=== PATIENT | female | born 1990 | race Caucasian/White ===

== ENCOUNTER 2022-10-29 08:02 | Emergency (ER) | payer BC, SELFPAY ==
[2022-10-29 08:08] VITALS: BP 117/73; PULSE 78; RESP 18; TEMP 36.4; O2SAT 98
--- NOTE | 2022-10-29 08:10 | ED.URI ---
HPI - URI/Sore Throat General Chief Complaint: Upper Respiratory Infection Stated Complaint: cough Source: patient and RN notes reviewed History of Present Illness HPI Narrative: 31-year-old female presents to urgent care with complaints a dry cough the last week. Patient states her cough is much worse at nighttime. Patient states she was up all night last night coughing. Patient denies any chest pain shortness breath fevers, chills, congestion sore throat, ear pain. Denies any vomiting or diarrhea. Patient has been using Mucinex and cough drops with minimal relief. Related Data Allergies Allergy/AdvReac Type Severity Reaction Status Date / Time No Known Allergies Allergy Verified 10/29/22 08:18 Review of Systems Review of Systems: Pertinent positives and pertinent negatives per HPI. PMFSH Comments At the time of my signature, I reviewed and agree with the nursing past medical, surgical, social, and family history. There is no relevant family history pertinent to the patient complaint. Exam Narrative: GENERAL: This is a well-nourished, well-developed patient, in no apparent distress. HEAD: normocephalic, atraumatic. EYES: Sclera clear/white. Vision is grossly intact. EARS: External ears normal, auditory canals clear and without drainage. Hearing grossly intact. NOSE: External nose normal with no obvious nasal discharge, nares without redness, no rhinorrhea. THROAT: Mucous membranes moist, posterior pharynx clear. NECK: Neck supple, non-tender without lymphadenopathy, masses or thyromegaly. CARDIOVASCULAR: Regular rate and rhythm without murmurs, gallops, or rubs. RESPIRATORY: Clear to auscultation. Breath sounds equal bilaterally. No wheezes, rales, or rhonchi. SKIN: warm, intact with no suspicious lesions or rash, good texture and turgor. NEURO: awake, alert, and oriented to person, place and time. There were no obvious focal neurologic abnormalities. Course Course Level of Care: Express Care Visit Vital Signs Vital signs: Reviewed MDM - URI/Sore Throat MDM Narrative Medical decision making narrative: Take steroids as directed. May use the inhaler every 4-6 hours as needed for coughing. Increase fluids at home. Avoid any and all smoke. May use a humidifier in the bedroom. Increase your Vitamin C. Follow-up with personal physician in 2-5 days. Differential Diagnosis Differential diagnosis: Likely upper respiratory infection, viral infection and bronchitis Critical Care Time Critical Care Time Critical Care Time: No Discharge Plan Discharge Clinical Impression: Bronchitis Patient Disposition: Home, Self-Care Condition: Stable Instructions: Acute Bronchitis (ED) Additional Instructions: Take steroids as directed. May use the inhaler every 4-6 hours as needed for coughing. Increase fluids at home. Avoid any and all smoke. May use a humidifier in the bedroom. Increase your Vitamin C. Follow-up with personal physician in 2-5 days. Prescriptions: New levalbuterol tartrate [Xopenex HFA] 45 mcg/actuation HFA aerosol inhaler 2 inh inhalation Q6H PRN (Reason: shortness of breath or wheezing) Qty: 15 0RF prednisone 20 mg tablet 40 mg PO DAILY 5 Days Qty: 10 0RF Follow-up/Referrals: PHYSICIAN NOT ON STAFF,NONSTAFF [Primary Care Provider] - Time of Disposition: 08:24
[2022-10-29] MEDS: predniSONE 20 MG TABLET 60 MG PO (08:29)
== END 2022-10-29 08:33 | disposition home or self-care (01) ==
PROVIDERS: Emergency Provider Nurse Practitioner Family
DX: J40 Bronchitis, not specified as acute or chronic (principal); J45.909 Unspecified asthma, uncomplicated
CPT/HCPCS: 99213; G0463; J7512

== ENCOUNTER 2022-11-14 10:12 | Emergency (ER) | payer BC, SELFPAY ==
--- NOTE | ~2022-11-14 | XR_ITS ---
EXAMINATION: [id number] DATE: 11/14/2022 11:43 INDICATION: Cough. Right rib pain. TECHNIQUE: A frontal view of the chest and 2 views on 3 radiographs of the right ribs were obtained. COMPARISON: None. FINDINGS: There is no pneumonia, pleural effusion, pneumothorax. The heart size is normal. IMPRESSION: 1. No rib fracture. Reviewed, dictated and finalized at location A. IMPRESSION: 1. No rib fracture.
[2022-11-14 10:27] VITALS: BP 103/72; PULSE 65; RESP 16; TEMP 36.9; O2SAT 100
--- NOTE | 2022-11-14 11:24 | ED.GENADULT ---
HPI - General Adult General Chief complaint: Unspecified Stated complaint: right side rib pain Time Seen by Provider: 11/14/22 11:00 Source: patient, RN notes reviewed and old records reviewed Mode of arrival: ambulatory Limitations: no limitations History of Present Illness HPI narrative: 32 year old female who presents to [facility] with complaints of having cough for 2 weeks and was trcently treated in clinic for Bronchitis. Patient states that 5 days ago she coughed and then stetched her arm over her head and felt a pop in her rib area. Patient reports that she continues to have some tenderness to right lateral chest area along rib cage and is concerned she may of broken rib. Patient states that she does have discomfort when she coughs or takes a deep breath to that area. Patient denies any shortness of breath or any fevers has taken some Ibuprofen for her discomfort. MD complaint: right side rib pain Onset (ago): day(s) (5) Location: chest (along right ribs) Severity scale (1-10): 2 Pain Consistency: intermittent Treatments prior to arrival: NSAID Related Data Allergies Allergy/AdvReac Type Severity Reaction Status Date / Time No Known Allergies Allergy Verified 10/29/22 08:18 Review of Systems Review of Systems: CONSTITUTIONAL: Denies fever, chills, or sweats. EYES: Denies visual changes, redness, or discharge. ENT: Denies rhinorrhea, congestion, sore throat, or otalgia. CARDIOVASCULAR: Denies chest pain, palpitations, or edema. RESPIRATORY: Reports some cough denies dyspnea, reports right rib area pain. GASTROINTESTINAL: Denies abdominal pain, nausea, vomiting, or diarrhea. GENITOURINARY: Denies dysuria or hematuria. SKIN: Denies rash or itching. MUSCULOSKELETAL: Denies back pain, joint pain, or myalgia. NEUROLOGIC: Denies headache, numbness, or weakness. PSYCHIATRIC: Denies anxiety or depression. All systems reviewed & are unremarkable except as noted in HPI and below PMFSH Past Medical History Medical History (Updated 11/15/22 @ 11:50 by Leah Razo NP) Asthma Ulcerative colitis Surgical History Surgical History (Updated 11/15/22 @ 11:56 by Leah Razo NP) History of endometrial ablation 06/2022 Social History Social History (Updated 11/15/22 @ 11:57 by Leah Razo NP) Smoking status: Never smoker Alcohol intake: current Alcohol use details: social Substance use type: does not use Living arrangements: with family Gender identity (if verbalized by the patient): Female Comments At time of signature, agree with nursing past medical, surgical, social and family history. There is no relevant family history pertinent to the presenting complaint Exam Narrative: GENERAL: Well-appearing, well-nourished, and in no acute distress. HEAD: Normocephalic, atraumatic. EYES: PERRLA and EOMI. ENT: Nares clear, no rhinorrhea or epistaxis. Mucous membranes moist.TM's normal NECK: Supple.no lymphadenopathy CHEST: Clear to auscultation. No respiratory distress.pain along right rib area increases with deep breathing HEART: Regular rate and rhythm. No murmur heard. Normal peripheral pulses. ABDOMEN: Soft, nontender, nondistended, normal active bowel sounds. EXTREMITIES: Normal range of motion. No edema. SKIN: Warm, dry, no rash. NEURO: No focal deficits. Alert and oriented x3. Course Course Emergency Course: Patient is aware of diagnosis, understands and agrees to treatment plan.? Anticipatory guidance given.? Patient agrees to follow-up as directed and is aware of reasons to seek care at the emergency department. Portions of this record may have been created with voice recognition software Level of Care: Express Care Visit Vital Signs Vital signs: Vital Signs Temperature 36.9 C 11/14/22 10:27 Pulse Rate 65 11/14/22 10:27 Respiratory Rate 16 11/14/22 10:27 Blood Pressure 103/72 11/14/22 10:27 Pulse Oximetry 100 11/14/22 10:27 Temperature 36.9
== END 2022-11-14 12:26 | disposition home or self-care (01) ==
PROVIDERS: Emergency Provider Registered Nurse
DX: M94.0 Chondrocostal junction syndrome [Tietze] (principal); J45.909 Unspecified asthma, uncomplicated
CPT/HCPCS: 71101; 99213; G0463

== ENCOUNTER 2023-02-15 10:07 | Emergency (ER) | payer BC, SELFPAY ==
--- NOTE | ~2023-02-15 | XR_ITS ---
EXAMINATION: XR finger 1st LT min 2V DATE: 02/15/2023 10:26 INDICATION: One week of nontraumatic left thumb pain and swelling TECHNIQUE: Dorsal palmar, lateral and 2 oblique views of the left first digit were obtained COMPARISON: None FINDINGS: Bone alignment is normal. No fracture. Joint spaces are normal. No cortical erosions or periosteal re action. Soft tissues are unremarkable. IMPRESSION: 1. Negative left thumb radiographs. Reviewed, dictated and finalized at location A. DOCTORAL RESEARCHER
[2023-02-15 10:12] VITALS: BP 104/66; PULSE 77; RESP 16; TEMP 36.8; O2SAT 97
--- NOTE | 2023-02-15 10:17 | ED.UPPEXIN ---
HPI - Extremity Injury (Upper) General Chief Complaint: Extremity Injury, Upper Stated Complaint: left thumb injury Source: patient and RN notes reviewed Mode of arrival: ambulatory Limitations: no limitations History of Present Illness HPI narrative: Patient is a 32-year-old female who presents to the [facility] with complaints of left thumb pain. Patient states that she was unable to pop her thumb and when she initially did, she had sudden onset pain to the MIP joint of the left thumb. She states that she initially had bruising and swelling that has resolved. However, she has continued to experience pain in the thumb. She states that she feels is afraid thumb gets cough when moving it. However, she has full range motion. She is neurovascularly intact distally. Related Data Allergies Allergy/AdvReac Type Severity Reaction Status Date / Time No Known Allergies Allergy Verified 10/29/22 08:18 Review of Systems Review of Systems: CONSTITUTIONAL: Denies fever, chills, or sweats. EYES: Denies visual changes, redness, or discharge. ENT: Denies otalgia and sore throat CARDIOVASCULAR: Denies chest pain, palpitations, or edema. RESPIRATORY: Denies cough or dyspnea. GASTROINTESTINAL: Denies abdominal pain, nausea, vomiting, or diarrhea. GENITOURINARY: Denies dysuria or hematuria. SKIN: Denies rash or itching. MUSCULOSKELETAL: Denies back pain or myalgia. Reports left thumb pain. NEUROLOGIC: Denies headache, numbness, or weakness. Pertinent positives per HPI. [facility] Past Medical History Medical History Asthma Ulcerative colitis Surgical History Surgical History History of endometrial ablation 06/2022 Social History Social History Smoking status: Never smoker Alcohol intake: current Alcohol use details: social Substance use type: does not use Living arrangements: with family Gender identity (if verbalized by the patient): Female Comments At the time of my signature, I reviewed and agree with the nursing past medical, surgical, social, and family history. There is no relevant family history pertinent to the patient complaint. Exam Narrative: GENERAL: This is a well-nourished, well-developed patient, in no apparent distress. HEAD: normocephalic, atraumatic. EYES: PERRL. Sclera clear/white. Vision is grossly intact. EARS: External ears normal, auditory canals clear and without drainage, TMs normal without perforation. Hearing grossly intact. NOSE: External nose normal with no obvious nasal discharge, nares without redness, no rhinorrhea. THROAT: Mucous membranes moist, posterior pharynx clear. NECK: Neck supple, non-tender without lymphadenopathy, masses or thyromegaly. CARDIOVASCULAR: Regular rate and rhythm without murmurs, gallops, or rubs. RESPIRATORY: Clear to auscultation. Breath sounds equal bilaterally. No wheezes, rales, or rhonchi. GASTROINTESTINAL: Abdomen soft, non-tender, nondistended. Bowel sounds are active. No hepato-splenomegaly, or palpable masses. No guarding. SKIN: warm, intact with no suspicious lesions or rash, good texture and turgor. NEURO: awake, alert, and oriented to person, place and time. There were no obvious focal neurologic abnormalities. EXTREMITIES: Left thumb tenderness over the MIP joint. Full range of motion present. She is neurovascularly intact distal from the area. BACK: Nontender without deformity or crepitance. No flank tenderness. Course Course Level of Care: Express Care Visit Vital Signs Vital signs: Vital Signs Temperature 98.3 F 02/15/23 10:12 Pulse Rate 77 02/15/23 10:12 Respiratory Rate 16 02/15/23 10:12 Blood Pressure 104/66 02/15/23 10:12 Pulse Oximetry 97 02/15/23 10:12 Oxygen Delivery Room Air 02/15/23 10:12 Temperature 98.3 F 02/15/23 10:12
== END 2023-02-15 10:44 | disposition home or self-care (01) ==
PROVIDERS: Emergency Provider Nurse Practitioner
DX: M65.312 Trigger thumb, left thumb (principal); J45.909 Unspecified asthma, uncomplicated
CPT/HCPCS: 73140; 99213; G0463

== ENCOUNTER 2023-06-05 08:37 | Outpatient (CLI) | payer BC, SELFPAY ==
[2023-06-05 19:10] LABS: Hemoglobin 13.3 g/dL (12.0-15.0); Mean Corpuscular HGB Conc 33.3 g/dl (32-36); Mean Corpuscular Hemoglobin 31.3 pg (26-34); Mean Corpuscular Volume 94.1 fl (80-100); Mean Platelet Volume 10.1 fl (7.4-10.4); Platelet Count Result 255 k/mm3 (150-375); Red Blood Count 4.25 M/mm3 (4.2-5.4); Red Cell Distribution Width 12.1 % (11.5-14.5); White Blood Count 4.1 K/mm3 (4.5-10.0)
[2023-06-05 19:17] LABS: Alanine Aminotransferase 15 U/L (6-35); Albumin Level 4.5 g/dL (3.5-5.1); Alkaline Phosphatase 41 U/L (38-126); Anion Gap 6 mmol/L (4-12); Aspartate Amino Transferase 45 U/L (14-36); Bilirubin,Total 0.8 mg/dL (0.2-1.3); Blood Urea Nitrogen 11 mg/dL (7-17); Calcium 9.4 mg/dL (8.4-10.2); Carbon Dioxide 29 mmol/L (22-30); Chloride 103 mmol/L (98-107); Cholesterol 158 mg/dL (0-200); Estimated Glomerular Filt Rate > 60; Glucose 91 mg/dL (65-110); HDL Direct 45 mg/dL; Potassium 4.3 mmol/L (3.4-5.0); Sodium 138 mmol/L (137-145); Triglycerides 55 mg/dL (<150)
[2023-06-05 19:28] LABS: LDL Cholesterol Direct 98 mg/dL
[2023-06-05 19:59] LABS: Erythrocyte Sedimentation Rate 12 mm/hr (0-20)
== END 2023-06-05 08:38 | disposition home or self-care (01) ==
LOC: ANHBWCLAB 08:39
PROVIDERS: PCP Nurse Practitioner Adult Health; Visit Provider Nurse Practitioner Adult Health
DX: Z13.9 Encounter for screening, unspecified (principal); K51.90 Ulcerative colitis, unspecified, without complications
CPT/HCPCS: 36415; 80053; 80061; 84443; 85027; 85652

== ENCOUNTER 2023-07-30 00:59 | Day surgery (SDC) | payer BC, SELFPAY ==
[2023-07-25 08:57] VITALS: BMI 25.9
[2023-07-30 11:20] VITALS: BP 105/79; PULSE 79; RESP 18; TEMP 36.4; O2SAT 100
[2023-07-30] MEDS: LACTATED RINGERS 1,000 ML 150 ML IV CONT (11:28)
--- NOTE | 2023-07-30 12:23 | WPDANESEPPF ---
Anes - Initial Pre Proc Eval Procedure: Operation Date: 07/30/23 13:00 Proposed Procedures p Esophagogastroduodenoscopy & Colonoscopy - Sam Connelly MD Date/Time: 07/30/23 12:23 Surgeon: Sam Connelly MD Pre Op Diagnosis: N&V, Early satiety,Abd. distension, diarrhea Patient Data Age: 32 Gender: F Height: 1.7 m Weight: 72.4 kg Last Vital Signs Temp 97.5 F L 07/30/23 11:20 Pulse 79 07/30/23 11:20 Resp 18 07/30/23 11:20 BP 105/79 07/30/23 11:20 Pulse Ox 100 07/30/23 11:20 O2 Del Method Room Air 07/30/23 11:20 Allergies Allergy/AdvReac Type Severity Reaction Status Date / Time No Known Allergies Allergy Verified 07/30/23 11:18 Home Medications Medication Instructions Recorded Confirmed Type fluvoxamine 50 mg tablet 50 mg PO QHS #90 tabs 07/17/23 07/25/23 Rx dicyclomine 10 mg capsule 10 mg PO QID PRN abdominal pain 07/20/23 07/25/23 Rx #120 caps ondansetron 4 mg disintegrating 4 mg PO Q8H PRN nausea and 07/20/23 07/25/23 Rx tablet vomiting #30 tabs rifaximin 550 mg tablet (Xifaxan) 550 mg PO TID 14 days #42 tabs 07/20/23 07/25/23 Rx Patient hx anesthesia problems: none Family hx anesthesia problems: none Results Review: All pre-operative results and documents have been reviewed as part of the pre-operative evaluation. [facility] Past Medical History Medical History Anxiety Asthma Migraine Ulcerative colitis Surgical History Surgical History History of endometrial ablation 06/2022 Family History Family History Father Diabetes mellitus Heart disease Cancer Mother Depression Disorder of thyroid Grandparent Diabetes mellitus Social History Social History Smoking status: Never smoker Alcohol intake: current Alcohol use details: Socially Substance use type: does not use Lack of Transportation: No Lack of Food: Never True Current Housing: I Have Housing Concerned About Future Housing: No Difficulty Paying Gas/Electric Bills: No Difficulty Paying for Meds: No Currently Unemployed: No Education: Trade/Vocational Certificate Difficulty w/ Childcare or Family Care: No Living arrangements: with family Additional living arrangements comments: with sp Occupation/Education: occupation 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 Gender identity (if verbalized by the patient): Female Agree to blood products: Yes Anes - Eval Final PreProcedure Day of Procedure 07/30/23 12:23 Patient weight: normal Heart: regular rate and rhythm Lungs: clear to auscultation Airway: Mallampati scale class II Neurological: alert and oriented Last oral intake: >/= 8 hours ASA classification: II Emergent: no Anesthetic plan: proceed Anesthesia type and monitoring: general GIVS and standard monitoring Results Review: All pre-operative results and documents have been reviewed as part of the pre-operative evaluation. Informed Consent: The patient's anesthetic plan and its attendant risks and benefits were discussed with the patient/family/POA. Questions were solicited and answers provided to the satisfaction of the patient/family/POA.
--- NOTE | 2023-07-30 13:14 | WPDHPUPDATE1 ---
History and Physical Update Update Date/Time: 07/30/23 13:14 History and Physical has been reviewed, including an updated exam of the patient. There are NO changes in the patient's condition. Risks, benefits, and alternatives have been discussed and questions answered. Patient agrees to proceed with procedure.
--- NOTE | 2023-07-30 13:22 | SUR.OPER ---
EGD start 1318 end 1320, Colonoscopy start 1325
[2023-07-30 13:36] VITALS: BP 91/56; PULSE 61; RESP 22; O2SAT 100
[2023-07-30 13:46] VITALS: BP 96/61; PULSE 60; RESP 14; O2SAT 100
[2023-07-30 13:56] VITALS: BP 107/72; PULSE 60; RESP 12; O2SAT 100
== END 2023-07-30 14:01 | disposition home or self-care (01) ==
PROVIDERS: PCP Nurse Practitioner Adult Health; Visit Provider Internal Medicine Gastroenterology
PROC: 0DJ08ZZ Inspection of Upper Intestinal Tract, Via Natural or Artificial Opening Endoscopic (ICD-10-PCS; CPT 43235; principal; 2023-07-30 13:00)
DX: K29.50 Unspecified chronic gastritis without bleeding (principal); K29.80 Duodenitis without bleeding; K64.8 Other hemorrhoids; F41.9 Anxiety disorder, unspecified; J45.909 Unspecified asthma, uncomplicated; Z98.890 Other specified postprocedural states; Z80.9 Family history of malignant neoplasm, unspecified; Z82.49 Family history of ischemic heart disease and other diseases of the circulatory system
CPT/HCPCS: 43239; 45380; 88305; J2001; J2704; J7120

== ENCOUNTER 2023-12-12 12:46 | Emergency (ER) | payer BC, SELFPAY ==
[2023-12-12 12:52] VITALS: BP 119/74; PULSE 71; RESP 16; TEMP 37.5; O2SAT 100
--- NOTE | 2023-12-12 13:17 | ED.LOWEXIN ---
HPI - Extremity Injury (Lower) General Chief Complaint: Extremity Injury, Lower Stated Complaint: top of left foot pain/swelling Time Seen by Provider: 12/12/23 13:17 Source: patient Mode of arrival: ambulatory Limitations: no limitations History of Present Illness HPI Narrative: 33-year-old female presents with complaint of pain to dorsal aspect left foot. Patient states this morning around 8:00 a.m. she ran her foot into a cabinet. Patient concern for fracture. Ambulatory with limp. All systems reviewed and negative except as noted above. Related Data Allergies Allergy/AdvReac Type Severity Reaction Status Date / Time No Known Allergies Allergy Verified 12/12/23 13:32 Review of Systems Review of Systems: CONSTITUTIONAL: Denies fever, chills, or sweats. EYES: Denies visual changes, redness, or discharge. ENT: Denies rhinorrhea, congestion, sore throat, or otalgia. CARDIOVASCULAR: Denies chest pain, palpitations, or edema. RESPIRATORY: Denies cough or dyspnea. GASTROINTESTINAL: Denies abdominal pain, nausea, vomiting, or diarrhea. GENITOURINARY: Denies dysuria or hematuria. SKIN: Denies rash or itching. MUSCULOSKELETAL: Pain to dorsal aspect left foot with swelling. NEUROLOGIC: Denies headache, numbness, or weakness. PSYCHIATRIC: Denies anxiety or depression. All other systems reviewed are negative, except as documented in HPI. [facility] Past Medical History Medical History (Updated 12/12/23 @ 13:58 by Clau Rosa NP) Anxiety Asthma Migraine Surgical History Surgical History History of endometrial ablation 06/2022 Family History Family History Father Diabetes mellitus Heart disease Cancer Mother Depression Disorder of thyroid Grandparent Diabetes mellitus Social History Social History Smoking status: Never smoker Alcohol intake: current Alcohol use details: Socially Substance use type: does not use Lack of Transportation: No Lack of Food: Never True Current Housing: I Have Housing Concerned About Future Housing: No Difficulty Paying Gas/Electric Bills: No Difficulty Paying for Meds: No Currently Unemployed: No Education: Trade/Vocational Certificate Difficulty w/ Childcare or Family Care: No Living arrangements: with family Additional living arrangements comments: with sp Occupation/Education: occupation 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 Gender identity (if verbalized by the patient): Female Agree to blood products: Yes Comments At time of signature, agree with nursing past medical, surgical, social and family history. There is no relevant family history pertinent to the presenting complaint. Exam Narrative: GENERAL: This is a well-nourished, well-developed patient, in no apparent distress. HEAD: normocephalic, atraumatic. EYES: PERRL. Sclera clear/white. Vision is grossly intact. EARS: External ears normal NOSE: External nose normal NECK: Neck supple, non-tender without lymphadenopathy, masses or thyromegaly. CARDIOVASCULAR: Regular rate and rhythm without murmurs, gallops, or rubs. RESPIRATORY: Clear to auscultation. Breath sounds equal bilaterally. No wheezes, rales, or rhonchi. SKIN: warm, Dry, intact with no suspicious lesions or rash, good texture and turgor. NEURO: awake, alert, and oriented to person, place and time. There were no obvious focal neurologic abnormalities. EXTREMITIES:pain and swelling to dorsal aspect L foot with small abrasion Course Course Level of Care: Express Care Visit Vital Signs Vital signs: Vital Signs Temperature 37.5 C 12/12/23 12:52 Pulse Rate 71 12/12/23 12:52 Respiratory Rate 16 12/12/23 12:52 Blood Pressure 119/74 12/12/23 12:52 Pulse Oximetry 100 12/12/23
== END 2023-12-12 14:00 | disposition home or self-care (01) ==
PROVIDERS: Emergency Provider Nurse Practitioner Family; PCP Nurse Practitioner Adult Health
DX: S90.811A Abrasion, right foot, initial encounter (principal); S90.32XA Contusion of left foot, initial encounter; W22.8XXA Striking against or struck by other objects, initial encounter; J45.909 Unspecified asthma, uncomplicated
CPT/HCPCS: 73630; 99213; G0463

== ENCOUNTER 2023-12-28 16:54 | Emergency (ER) | payer BC, SELFPAY ==
[2023-12-28 17:00] VITALS: BP 121/62; PULSE 81; RESP 18; TEMP 36.7; O2SAT 97
--- NOTE | 2023-12-28 17:21 | ED.WOUNDLAC ---
HPI - Wound/Laceration General Chief Complaint: Wound/Laceration Stated Complaint: Wound Check/Left Leg Time Seen by Provider: 12/28/23 17:21 Source: patient Mode of arrival: ambulatory Limitations: no limitations History of Present Illness HPI narrative: 33 y/o female presented for suture removal. States she had a mole removed from left thigh 2 weeks ago. Pt attempted to remove sutures, after 2 were removed the end of the incision started opening up. Says she wanted someone to see it before removing the remaining 14 sutures. Denies drainage, warmth or redness. Related Data Allergies Allergy/AdvReac Type Severity Reaction Status Date / Time No Known Allergies Allergy Verified 12/12/23 13:32 Review of Systems Review of Systems: CONSTITUTIONAL: Denies body aches, fever, chills, or sweats. CARDIOVASCULAR: Denies chest pain, palpitations, or edema. RESPIRATORY: Denies cough or dyspnea. SKIN: per HPI MUSCULOSKELETAL: Denies back pain, joint pain, or myalgia. NEUROLOGIC: Denies headache, numbness, tingling, or weakness. [facility] Past Medical History Medical History Anxiety Asthma Migraine Surgical History Surgical History History of endometrial ablation 06/2022 Family History Family History Father Diabetes mellitus Heart disease Cancer Mother Depression Disorder of thyroid Grandparent Diabetes mellitus Social History Social History Smoking status: Never smoker Alcohol intake: current Alcohol use details: Socially Substance use type: does not use Lack of Transportation: No Lack of Food: Never True Current Housing: I Have Housing Concerned About Future Housing: No Difficulty Paying Gas/Electric Bills: No Difficulty Paying for Meds: No Currently Unemployed: No Education: Trade/Vocational Certificate Difficulty w/ Childcare or Family Care: No Living arrangements: with family Additional living arrangements comments: with sp Occupation/Education: occupation 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 Gender identity (if verbalized by the patient): Female Agree to blood products: Yes Comments At time of signature, I have reviewed and agree with nursing past medical, surgical, social and family history unless otherwise noted. Please see nursing chart for further information. There is no relevant family history pertinent to the presenting complaint Exam Narrative: GENERAL: Well-appearing ENT: Mucous membranes moist. Oropharynx without edema, erythema or lesions. CHEST: Clear to auscultation. HEART: Regular rate and rhythm. SKIN: Warm, dry. Left anterior lower thigh with 4cm linear incision and sutures in place. lateral aspect of the wound appears unapproximated. No surrounding induration, warmth or pain. NEURO: Alert and oriented x3. Course Course Emergency Course: Patient is aware of diagnosis, understands and agrees to treatment plan. Anticipatory guidance given. Patient agrees to follow-up as directed and is aware of reasons to seek care at the emergency department. Portions of this record may have been created with voice recognition software Level of Care: Express Care Visit Vital Signs Vital signs: Vital Signs Temperature 98.1 F 12/28/23 17:00 Pulse Rate 81 12/28/23 17:00 Respiratory Rate 18 12/28/23 17:00 Blood Pressure 121/62 12/28/23 17:00 Pulse Oximetry 97 12/28/23 17:00 Oxygen Delivery Room Air 12/28/23 17:00 Temperature 98.1 F 12/28/23 17:00 Pulse Rate 81 12/28/23 17:00 Respiratory Rate 18 12/28/23 17:00 Blood Pressure 121/62 12/28/23 17:00 Pulse Oximetry 97 12/28/23 17:00 Oxygen Delivery Room Air 12/28/23 17:00 Reviewed
== END 2023-12-28 17:45 | disposition home or self-care (01) ==
PROVIDERS: Emergency Provider Nurse Practitioner Family; PCP Nurse Practitioner Adult Health
DX: Z48.02 Encounter for removal of sutures (principal)
CPT/HCPCS: 99211; G0463

== ENCOUNTER 2024-07-21 09:22 | Outpatient (CLI) | payer BC, SELFPAY ==
--- OUTSIDE RECORDS SUMMARY | 2024-07-21 09:27 | XMS_ITS | Clinical Summary ---
Author Organization [address] lto Address [address] [place] [address] Care Team Providers Care Carpenter Rough Name Role Phone Mamie Soria NP Unavailable [phone] Colleen Roman NP Primary Care Provider [phone] Allergies No known active allergies Medications fluvoxaMINE (LUVOX) 50 mg tablet Take 1 tablet (50 mg total) by mouth nightly Active Active Problems No known active problems Surgical History Surgery Date Site/Laterality Comments SECTION KNEE CARTILAGE SURGERY Left Medical History Medical History Date Comments No pertinent past medical history OCD (obsessive compulsive disorder) Family History Medical History Relation Name Comments Cancer Father Diabetes Father Relation Name Status Comments Father Social History Tobacco Use Types Packs/Day Years Used Date Smoking Tobacco: Never Comments Unknown Sex and Gender Information Value Date Recorded Sex Assigned at Not on file Legal Sex Female 3:25 PM WET POUR MIXER Gender Identity Not on file Sexual Orientation Not on file Obstetrics History Last Filed Vital Signs Vital Sign Reading Time Taken Comments Blood Pressure 114/79 04/18/2024 8:06 AM WET POUR MIXER Pulse 74 04/18/2024 8:06 AM WET POUR MIXER Temperature 36.8 C (98.2 F) 04/18/2024 8:06 AM WET POUR MIXER Respiratory Rate 16 11/27/2020 8:16 AM CDT Oxygen Saturation 99% 11/27/2020 8:16 AM CDT Inhaled Oxygen Concentration - - Weight 78.5 kg (173 lb 1 oz) 04/18/2024 8:06 AM WET POUR MIXER Height 170.2 cm (5' 7 ) 04/18/2024 8:06 AM WET POUR MIXER Body Mass Index 27.11 04/18/2024 8:06 AM WET POUR MIXER Plan of Treatment Health Maintenance Due Date Last Done Comments Cervical Cancer Screening 1988 Depression Screening 1988 Hepatitis C Screening 1988 Varicella Vaccines (1 of 2 - 13+ 2-dose series) 2001 Hepatitis B Screening 2006 Regular Well Visit/Exam 18-64 2006 Pneumococcal vaccine <65 (1 of 2 - PCV) 11/07/2007 Covid-19 Vaccine (3 - season) 2023 03/23/2020, 03/03/2020 Influenza Vaccine (Season Ended) 2024 01/19/2022, 04/04/2021, 12/25/2017, Additional history exists DTaP/Tdap/Td Vaccine (2 - Tdap) 08/11/2027 08/10/2017 HPV Vaccines Aged Out No longer eligi ble based on patient's age to complete this topic Insurance [employer] Member Subscriber Plan / Payer (Ef fective 2019-Present) Name:Katie Beckman Relation to Subscriber:Spouse Name:LUX BECKMAN Date of :1988 (Home) Address: [address] [place] [address] Payer ID:[id number] (NAIC) Type: MARYAM Address: [facility] [id number] [place] [id number] ANTHEM ACCESS ANTHEM ACCESS Care Teams Carpenter Rough Relationship Specialty Start Date End Date Colleen Roman NP [address] [place] [address] PCP - General Nurse Practitioner 03/10/24 Mamie Soria NP [address] [place] [address] Emergency Medicine 11/27/20
--- OUTSIDE RECORDS SUMMARY | 2024-07-21 09:27 | XMS_ITS | Referral Summary ---
Author Organization [address] lto Address [address] [place] [address] Care Team Providers Care Conveyor Feeder Offbearer Name Role Phone Maime Soria NP Unavailable Colleen Roman NP Primary Care Provider [phone] Allergies No known active allergies Medications fluvoxaMINE (LUVOX) 50 mg tablet Take 1 tablet (50 mg total) by mouth nightly Active Active Problems No known active problems Social History Tobacco Use Types Packs/Day Years Used Date Smoking Tobacco: Never Comments Unknown Sex and Gender Information Value Date Recorded Sex Assigned at Not on file Legal Sex Female 3:25 PM PRODUCT ADVISOR Gender Identity Not on file Sexual Orientation Not on file Last Filed Vital Signs Vital Sign Reading Time Taken Comments Blood Pressure 114/79 04/18/2024 8:06 AM PRODUCT ADVISOR Pulse 74 04/18/2024 8:06 AM PRODUCT ADVISOR Temperature 36.8 C (98.2 F) 04/18/2024 8:06 AM PRODUCT ADVISOR Respiratory Rate 16 11/27/2020 8:16 AM CDT Oxygen Saturation 99% 11/27/2020 8:16 AM CDT Inhaled Oxygen Concentration - - Weight 78.5 kg (173 lb 1 oz) 04/18/2024 8:06 AM PRODUCT ADVISOR Height 170.2 cm (5' 7 ) 04/18/2024 8:06 AM PRODUCT ADVISOR Body Mass Index 27.11 04/18/2024 8:06 AM PRODUCT ADVISOR Plan of Treatment Not on file Insurance ANTHEM ACCESS ANTHEM ACCESS ANTHEM ACCESS Care Teams Conveyor Feeder Offbearer Relationship Specialty Start Date End Date Colleen Roman NP [address] [place] [address] PCP - General Nurse Practitioner 03/10/24 Mamie Soria NP [address] [place] [address] Emergency Medicine 11/27/20
--- OUTSIDE RECORDS SUMMARY | 2024-07-21 09:27 | XMS_ITS | Clinical Summary ---
Author Organization [facility] Address [address] [place] [address] Care Team Providers Care Components Engineer Name Role Phone Pascual Blankenship MD Primary Care Provider Source Comments [facility],non-owned Affiliates and Associated Physician Practices is amultiple site organization consisting of ambulatory clinics and hospital sitesin [place], [place], [place] and [place]. This disclosure is being madepursuant to the Care Everywhere program and may not contain all information available regarding this patient. Last updated 17.[facility] Immunizations Immunization Administration Dates Next Due Covid Pfizer primary monoval ent 12+ yr 0.3mL Purple cap 03/23/2020,03/03/2020 Social History Tobacco Use Types Packs/Day Years Used Date Smoking Tobacco: Never Assessed Comments Unknown Sex and Gender Information Value Date Recorded Sex Assigned at Not on file Legal Sex Female 5:42 AM DRYCLEANER Gender Identity Not on file Sexual Orientation Not on file Plan of Treatment Health Maintenance Due Date Last Done Comments PAP SMEAR 1988 HIV SCREENING 11/07/2003 HEPATITIS C SCREENING 11/02/2006 DTAP/TDAP/TD VACCINES (1 - Tdap) 11/07/2007 HEPATITIS B VACCINE (1 of 3 - 19+ 3-dose series) 11/07/2007 COVID-19 VACCINE (3 - 2023-2 5 season) 2023 03/23/2020, 03/03/2020 DEPRESSION SCREENING 03/12/2024 INFLUENZA VACCINE (Season Ended) 2024 12/25/2017, 12/30/2010 ZOSTER VACCINE (1 of 2) 2038 HIB VACCINE Aged Out No longer eligi ble based on patient's age to complete this topic HPV VACCINE Aged Out No longer eligi ble based on patient's age to complete this topic MENINGOCOCCAL (Group B) VACCINE SHARED DECISION-MAKING Aged Out No longer eligible based on patient's age to complete this topic MENINGOCOCCAL GROUPS A/C/Y/W VACCINE Aged Out No longer eligible b ased on patient's age to complete this topic PNEUMOCOCCAL VACCINE Aged Out No long er eligible based on patient's age to complete this topic Insurance ANTHEM * Guarantor: KATIE BECKMAN Account Type Relation to Patient Date of Phone Billing Address Personal/Family [address] [place] [address] SELF PAY NO INSURANCE Member Subscriber Plan / Payer (Ef fective for All Dates) Name:Katie Beckman Member ID:Not on file Relation to Subscriber:Not on file Name:KATIE BECKMAN Subscriber ID:Not on file Address: [address] [place] [address] Payer ID:Not on file Group ID:Not on file Type:Self Pay Address: [place], [place] * Guarantor: KATIE BECKMAN Account Type Relation to Patient Date of Phone Billing Address Personal/Family [address] [place] [address] SELF PAY NO INSURANCE Member Subscriber Plan / Payer (Ef fective for All Dates) Name:Katie Beckman Member ID:Not on file Relation to Subscriber:Not on file Name:KATIE BECKMAN Subscriber ID:Not on file Address: [address] [place] [address] Payer ID:Not on file Group ID:Not on file Type:Self Pay Address: [place], [place] * Guarantor: KATIE BECKMAN Account Type Relation to Patient Date of Phone Billing Address Personal/Family [address] [place] [address] SELF PAY NO INSURANCE Member Subscriber Plan / Payer (Ef fective for All Dates) Name:Katie Beckman Member ID:Not on file Relation to Subscriber:Not on file Name:KATIE BECKMAN Subscriber ID:Not on file Address: [address] [place] [address] Payer ID:Not on file Group ID:Not on file Type:Self Pay Address: [place], [place] Care Teams Components Engineer Relationship Specialty Start Date End Date Pascual Blankenship MD [address] [place] [address] PCP - General 02/07/22
--- OUTSIDE RECORDS SUMMARY | 2024-07-21 09:27 | XMS_ITS | Clinical Summary ---
Author Organization [facility] Address [address] [place] [address] Phone Care Team Providers Care Bunch Maker Hand Name Role Phone Mamie Soria APRN, BOX SORTER Primary Care P rovider Allergies Active Allergy Reactions Criticality Noted Date Comments Red Dye #40 (Allura Red) Itching,Swelling 03/25 Medications triamcinolone (KENALOG) 0.1 % CreamIndications :Allergic contact dermatitis, unspecified trigger Application Site: bilateral lower legs. Apply twice daily. 80 g 3 Active Additional Information Patient not taking.Reported on 04/03/2023 levalbuterol (XOPENEX HFA) 45 MCG/ACT Aerosol INHALE 2 PUFFS BY MOUTH EVERY 6 HOURS NEEDED FOR SHORTNESS OF BREATH OR WHEEZING 3 Active moxifloxacin (VIGAMOX) 0.5 % Solution INSTILL 1 DROP INTO RIGHT EYE EVERY HOUR TODAY AND THEN DECREASE TO 1 DROP FOUR TIMES DAILY DIRECTED. 3 Active Active Problems Problem Noted Date Diagnosed Date Colitis 12/25/2017 Immunizations Immunization Administration Dates Next Due DTAP VACCINE 08/10/2017 Influenza Vaccine, Quadrivalent, PF 01/19/2022,0 04/04/2021,12/25/2017 Family History Medical History Relation Name Comments Diabetes Father No Known Problems Mother Relation Name Status Comments Father Mother Alive Social History Tobacco Use Types Packs/Day Years Used Date Smoking Tobacco: Never Smokeless Tobacco: Never Tobacco Cessation:Counseling Given: Not Answered Alcohol Use Standard Drinks/Week Comments No 0 (1 standard drink = 0.6 oz pur e alcohol) PHQ-2 Answer Date Recorded Total Score - Questions 1-9 0 09/10 Education Answer Date Recorded What is the highest level of school you have completed or the highest degree you have received? Associate degree: occupational, technical, or vocational program 04/12/2020 Sexually Active Control Partners Comments Yes Comments No Sex and Gender Information Value Date Recorded Sex Assigned at Not on file Legal Sex Female 11:34 AM CDT Gender Identity Not on file Sexual Orientation Not on file Last Filed Vital Signs Vital Sign Reading Time Taken Comments Blood Pressure 100/70 04/03/2023 11:38 AM HIGHER EDUCATION ADMINISTRATOR Pulse 83 04/03/2023 11:38 AM HIGHER EDUCATION ADMINISTRATOR Temperature 37.6 C (99.7 F) 04/03/2023 11:38 AM HIGHER EDUCATION ADMINISTRATOR Respiratory Rate 15 04/03/2023 11:38 AM HIGHER EDUCATION ADMINISTRATOR Oxygen Saturation 99% 04/03/2023 11:38 AM HIGHER EDUCATION ADMINISTRATOR Inhaled Oxygen Concentration - - Weight 72.6 kg (160 lb) 11/07/2022 10:39 AM CDT Height 172.7 cm (5' 8 ) 11/07/2022 10:39 AM CDT Body Mass Index 24.33 11/07/2022 10:39 AM CDT Plan of Treatment Health Maintenance Due Date Last Done Comments Hepatitis C Virus (HCV) Screening 1988 HPV/Cotest 2018 Cervical Cancer Screening (CCS) 10/20/2023 Pap Smear 10/20/2023 10/19/2020, 11/14/2017 Influenza Immunization (#1) 11/11/202301/10, 04/04/2021, 12/25/2017 SARS-COV-2 Immunization ( season) 2023 04/04/2021, 03/23/2020, 03/03/2020 Respiratory Syncytial Virus (RSV) Immunization (Adult) (1 - 1-dose 75+ series) 11/07/2063 Hepatitis B Immunization Discontinued Meningococcal Immunization (ACWY) Aged Out No longer eligible based on patient's age to complete this topic Pneumococcal Immunization Combined Aged Out No longer eligible based on patient's age to complete this topic Rotavirus Immunization Aged Out No lo nger eligible based on patient's age to complete this topic Insurance [facility] Care Teams Bunch Maker Hand Relationship Specialty Start Date End Date Mamie Soria APRN, BOX SORTER [address] [place] [address] PCP - General Advanced Practice Nurse 12/25/17
--- OUTSIDE RECORDS SUMMARY | 2024-07-21 09:27 | XMS_ITS | Clinical Summary ---
Author Organization [facility] e Address [address] [place] [address] Care Team Providers Care Coiler Operator Name Role Phone Michael Schumacher MD Primary Care Provider [phone] Allergies Active Allergy Reactions Criticality Noted Date Comments Nickel Hives High 12/12/2012 Red Dye Anaphylaxis High 12/12/2012 Medications No known medications Active Problems Problem Noted Date Diagnosed Date 10/02, baby A 10/02/2017 S/P emergency section - baby B 10/03/19 18 contractions 08/27/2017 Allergic rhinitis 07/28/2011 Colitis 06/29/2010 Overview (06/29/2010): Colonoscopy, Dr. Hewitt, 06/17/10: rectal ulcer without bleeding, pathology: active colitis, trial of Amitiza. Plans TSH and celiac screening labs. Cervical strain 05/14/2010 Overview (05/14/2010): Sees Dr. Rodas, Chiropractor Obsessive behaviors 11/29/2009 IBS (irritable bowel syndrome) 08/02/2009 Asthma, mild intermittent 08/02/2009 Vitamin B 12 deficiency 08/02/2009 Vaginal discharge during in third trim michelle Dichorionic diamniotic twin in third t rimester Resolved Problems Problem Noted Date Diagnosed Date Resolved Date Encounter for induction of labor 10/02/2017 10/02/2017 Immunizations Immunization Administration Dates Next Due (INFANRIX)(6 WKS-6 YRS) DIPT HERIA, TETANUS TOXOIDS, AND ACCELLULAR PERTUSSIS VACCINE (DTAP), 0.5 ML IM 07/31/2017 Influenza Seasonal Unspecified Formulation IM Family History Medical History Relation Name Comments Healthy Brother Cancer Father testicle at 21 y/o, KEI Healthy Father Breast Cancer Maternal Aunt Cancer Maternal Grandfather stomach and esophagus Lung Cancer Maternal Grandfather Diabetes Maternal Grandmother juvenil e onset Kidney Disease Maternal Grandmother renal failure due to DM Healthy Mother Hypertension Mother Heart Disease Paternal Grandfather MA, 80 y/o Unknown Paternal Grandmother Relation Name Status Comments Brother Alive Father Alive Maternal Aunt Other Maternal Grandfather Maternal Grandmother Mother Alive Paternal Grandfather Paternal Grandmother Son Alive Social History Tobacco Use Types Packs/Day Years Used Date Smoking Tobacco: Never Smokeless Tobacco: Never Tobacco Cessation:Counseling Given: Yes Alcohol Use Standard Drinks/Week Comments Yes 0 (1 standard drink = 0.6 oz pur e alcohol) occasional Comments No Sex and Gender Information Value Date Recorded Sex Assigned at Not on file Legal Sex Female 5:50 AM CRITICAL CARE SPECIALIST Gender Identity Not on file Sexual Orientation Not on file Occupation Industry Job Start Date Job End Date Not on file Not on file Not on file Not on file Last Filed Vital Signs Vital Sign Reading Time Taken Comments Blood Pressure 118/64 08/01/2022 12:08 PM CDT Pulse 78 10/05/2017 7:08 AM CDT Temperature 36.9 C (98.5 F) 10/05/2017 7:08 AM CDT Respiratory Rate 18 10/05/2017 7:08 AM CDT Oxygen Saturation 97% 10/03/2017 7:20 PM CDT Inhaled Oxygen Concentration - - Weight 73.9 kg (163 lb) 08/01/2022 12:08 PM CDT Height 172.7 cm (5' 8 ) 05/31/2022 12:08 PM CDT Body Mass Index 24.78 05/31/2022 12:08 PM CDT Plan of Treatment Health Maintenance Due Date Last Done Comments HEPATITIS B VACCINES (1 of 3 - 19+ 3-dose series) 11/07/2007 INFLUENZA VACCINE (#1) 2023 , 04/04/2021, 12/25/2017, Additional history exists PAP SMEAR 05/31/2025 05/31/2022, 10/19/2020 CERVICAL CANCER SCREENING 06/01/2027 HPV/Cotest (21-) 06/01/2027 05/31/2022, 10/19/2020 HPV/Cotest (30-65) 06/01/2027 05/31/2022, 10/19/2020 DTAP/TDAP/TD VACCINES (2 - Tdap) 08/01/2027 07/31/2017 HPV VACCINES Aged Out No longer eligi ble based on patient's age to complete this topic Procedures Procedure Name Priority Date/Time Associated Diagnosis Comments CERV/VAG CYTO AGE BASED SCREEN PAP Routine 05/31/2022 12:56 PM CDT Screening for cervical cancer from Last 3 Months or Most Recently Relevant to Health Maintenance Results * CERV/VAG CYTO AGE BASED SCREEN PAP (05/31/2022 12:56 PM CDT) COMMENT (PAP): [facility] Comment: This order for age-based cervical cancer and STI screening follows ACOG guidelines(PB 168, 140, HYS327). See individual assays for performing site location. CLINICAL INFORMATION [facility] Comment:None given LAST MENSTRUAL PERIOD [facility] [place] Comment:NONE GIVEN PREV PAP: [facility] [place] [facility] Comment:NONE GIVEN PREV BX: [facility] [place] Comment:NONE GIVEN SOURCE [facility] [place] Comment:Endocervix ADEQUACY: [facility] [place] [facility] Comment: Satisfactory for evaluation. Endocervical/transformation zone component present. Age and/or menstrual status not provided PAP INTERP [facility] [place] [facility] Comment:Negative for intraep ithelial lesion or malignancy. COMMENT (PAP TEST) [facility] [place] Comment: This Pap test has been evaluated with computer assisted technology. REGISTERED DIET TECHNICIAN: Adenike [employer] Neal Scott Comment: ABC, CT(ASCP) CT screening location: [place] [address] [address] [address] REVIEW REGISTERED DIET TECHNICIAN: Paige Scott Comment: LMT, CT(ASCP) CT screening location: [place] [address] [address] [address] [address] Neal Scott Comment: EXPLANATORY NOTE: The Pap is a screening test for cervical cancer. It is not a diagnostic test and is subject to false negative and false positive results. It is most reliable when a satisfactory sample, regularly obtained, is submitted with relevant clinical findings and history, and when the Pap result is evaluated along with historic and current clinical information. HPV E6/E7 Not Detected Not Detected [facility] Comment: Methodology: Enterprise Services Manager-Mediated Amplification This assay detects E6/E7 viral messenger RNA (mRNA) from 14 high-risk HPV types (16,18,31,33,35,39,45,51,52,56,58,59,66,68). Cervical sources are required for HPV testing. If a vaginal source from a patient who has had a total hysterectomy with removal of cervix was submitted, please contact the testing laboratory for alternative testing options. For additional information, please refer to http://education.Buttercoin/faq/NXQ256b4 (This link if provided for information/ educational purposes only.) Test Performed at: [facility] [address] [place] [address] Orestes Pollock MD Genital SWAB OF ENDOCERVIX / Unknown 05/31/2022 12:56 PM CDT 06/01/2022 1:49 AM CDT Arvind Rich MD PATHOLOGY/CYTOLOGY ORDERABLES [facility] Result [facility] [phone] [facility] [address] [place] [address] from Last 3 Months or Most Recently Relevant to Health Maintenance Insurance [employer] [facility] BLUE ACCESS/TRUE BLUE PPO Advance Directives For more information, please contact: [phone] * Full Code (Latest Code Status on File) Date Activated Date Inactivated Comments 10/03/2017 12:04 AM 10/05/2017 3:30 PM * Full Code Date Activated Date Inactivated Comments 10/02/2017 10:17 AM 10/03/2017 12:04 AM * Full Code Date Activated Date Inactivated Comments 08/26/2017 10:18 PM 08/28/2017 9:05 PM * Full Code Date Activated Date Inactivated Comments 08/13/2017 8:02 PM 08/13/2017 11:47 PM * Full Code Date Activated Date Inactivated Comments 06/17/2010 2:47 PM 06/18/2010 2:32 AM Care Teams Coiler Operator Relationship Specialty Start Date End Date Michael Schumacher MD PCP - General Family Practice 06/21/09
[2024-07-21 19:20] LABS: Hematocrit 36.8 % (37.0-47.0); Hemoglobin 12.3 g/dL (12.0-15.0); Mean Corpuscular HGB Conc 33.4 g/dl (32-36); Mean Corpuscular Hemoglobin 31.5 pg (26-34); Mean Corpuscular Volume 94.4 fl (80-100); Mean Platelet Volume 10.1 fl (7.4-10.4); Platelet Count Result 227 k/mm3 (150-375); Red Cell Distribution Width 12.1 % (11.5-14.5); White Blood Count 4.3 K/mm3 (4.5-10.0)
[2024-07-21 21:07] LABS: Alanine Aminotransferase 16 U/L (6-35); Alkaline Phosphatase 51 U/L (38-126); Anion Gap 5 mmol/L (4-12); Aspartate Amino Transferase 44 U/L (14-36); Bilirubin,Total 0.4 mg/dL (0.2-1.3); Blood Urea Nitrogen 12 mg/dL (7-17); Calcium 8.5 mg/dL (8.4-10.2); Carbon Dioxide 30 mmol/L (22-30); Chloride 103 mmol/L (98-107); Cholesterol 139 mg/dL (0-200); Estimated Glomerular Filt Rate > 60; Glucose 90 mg/dL (65-110); HDL Direct 47 mg/dL; Potassium 4.2 mmol/L (3.4-5.0); Sodium 138 mmol/L (137-145); Triglycerides 63 mg/dL (<150)
[2024-07-21 21:18] LABS: LDL Cholesterol Direct 64 mg/dL
== END 2024-07-21 09:23 | disposition home or self-care (01) ==
PROVIDERS: PCP Nurse Practitioner Adult Health; Visit Provider Nurse Practitioner Adult Health
DX: Z13.9 Encounter for screening, unspecified (principal); R19.7 Diarrhea, unspecified; K62.5 Hemorrhage of anus and rectum; R14.0 Abdominal distension (gaseous); R68.81 Early satiety; R11.2 Nausea with vomiting, unspecified
CPT/HCPCS: 36415; 80053; 80061; 83036; 84443; 85027

== ENCOUNTER 2024-09-14 11:07 | Emergency (ER) | payer BC, SELFPAY ==
--- OUTSIDE RECORDS SUMMARY | 2024-09-14 11:09 | XMS_ITS | Clinical Summary ---
Author Organization [facility] Address [address] [place] [address] Phone Care Team Providers Care Forge Helper Name Role Phone Mamie Soria APRN, LAY HEALTH ADVOCATE Primary Care P rovider Allergies Active Allergy [...] Comments Blood Pressure 100/70 04/03/2023 11:38 AM GUIDE PLANT Pulse 83 04/03/2023 11:38 AM GUIDE PLANT Temperature 37.6 C (99.7 F) 04/03/2023 11:38 AM GUIDE PLANT Respiratory Rate 15 04/03/2023 11:38 AM GUIDE PLANT Oxygen Saturation 99% 04/03/2023 11:38 AM GUIDE PLANT Inhaled Oxygen Concentration - - Weight 72.6 kg (160 lb) 11/07/2022 10:39 AM CDT Height 172.7 cm (5' 8) 11/07/2022 10:39 AM CDT Body Mass Index 24.33 11/07/2022 10:39 AM CDT Plan of Treatment Health Maintenance Due Date Last Done Comments Hepatitis C Virus (HCV) Screening 1990 Human Papillomavirus (HPV) Immunization (1 - 3-dose series) 11/07/2003 HPV/Cotest 2018 Cervical Cancer Screening (CCS) 10/20/2023 Pap Smear 10/20/2023 10/19/2020, 11/14/2017 SARS-COV-2 Immunization ( season) 2023 04/04/2021, 03/23/2020, 03/03/2020 Influenza Immunization (Seas on Ended) 2024 01/19/2022, 04/04/2021, 12/25/2017 Respiratory Syncytial Virus (RSV) Immunization (Adult) (1 [...] patient's age to complete this topic Insurance [facility] Care Teams Forge Helper Relationship Specialty Start Date End Date Mamie Soria APRN, LAY HEALTH ADVOCATE [address] [place] [address] PCP - General Advanced Practice Nurse 12/25/17
--- OUTSIDE RECORDS SUMMARY | 2024-09-14 11:09 | XMS_ITS | Clinical Summary ---
Author Organization [facility] e Address [address] [place] [address] Care Team Providers Care Nursing Support Worker Name Role Phone Michael Schumacher MD Primary Care Provider [phone] Allergies Active Allergy Reactions Criticality Noted Date [...] Mother Hypertension Mother Heart Disease Paternal Grandfather [place], 80 y/o Unknown Paternal Grandmother Relation Name [...] on file Legal Sex Female 5:50 AM COOKER SODA Gender Identity Not on file Sexual Orientation [...] 12:08 PM CDT Height 172.7 cm (5' 8) 05/31/2022 12:08 PM CDT Body Mass Index 24.78 05/31/2022 12:08 PM CDT Plan of Treatment Health Maintenance Due Date Last Done Comments HEPATITIS B VACCINES (1 of 3 - 19+ 3-dose series) 11/07/2007 INFLUENZA VACCINE (#1) 2024 , 04/04/2021, 12/25/2017, Additional history exists PAP [...] PAP (05/31/2022 12:56 PM CDT) COMMENT (PAP): [facility] [place] Comment: This order for age-based cervical cancer and STI screening follows ACOG guidelines(PB 168, 140, [id number]). See individual assays for performing site location. CLINICAL INFORMATION [facility] [place] Comment:None given LAST MENSTRUAL PERIOD [facility] [place] Comment:NONE GIVEN PREV PAP: [facility] [place] Comment:NONE GIVEN PREV BX: [facility] [place] Comment:NONE GIVEN SOURCE [facility] [place] Comment:Endocervix ADEQUACY: [facility] [place] Comment: Satisfactory for evaluation. Endocervical/transformation zone component present. Age and/or menstrual status not provided PAP INTERP [facility] [place] Comment:Negative for intraep ithelial lesion or malignancy. COMMENT (PAP TEST) [facility] [place] Comment: This Pap test has been evaluated with computer assisted technology. WORKERS COMPENSATION CLAIMS ANALYST: [employer] Neal Scott Comment: ABC, CT(ASCP) CT screening location: [place] [address] [address] [address] REVIEW WORKERS COMPENSATION CLAIMS ANALYST: Paige Scott Comment: LMT, CT(ASCP) CT screening location: [place] [address] [address] [place] [address] Neal Scott Comment: [...] information. HPV E6/E7 Not Detected Not Detected [employer] Comment: Methodology: Secretarial Teacher-Mediated Amplification This assay detects E6/E7 viral messenger RNA (mRNA) from 14 high-risk HPV types (16,18,31,33,35,39,45,51,52,56,58,59,66,68). Cervical sources are required for HPV testing. If a vaginal source from a patient who has had a total hysterectomy with removal of cervix was submitted, please contact the testing laboratory for alternative testing options. For additional information, please refer to http://education.[employer]/faq/XJA478z5 (This link if provided for information/ educational purposes only.) Test Performed at: [facility] [address] [place] [address] Orestes Pollock MD Genital SWAB OF ENDOCERVIX / Unknown 05/31/2022 12:56 PM CDT 06/01/2022 1:49 AM CDT Arvind Rich MD PATHOLOGY/CYTOLOGY ORDERABLES [facility] Result [facility] [phone] [facility] [address] [place] [address] from Last 3 Months or Most Recently Relevant to Health Maintenance Insurance RX [employer] Express [facility] BLUE ACCESS/TRUE BLUE PPO Advance Directives For more information, please contact: [phone] * Full Code (Latest Code Status on [...] 2:47 PM 06/18/2010 2:32 AM Care Teams Nursing Support Worker Relationship Specialty Start Date End Date Michael Schumacher MD PCP - General Family Practice 06/21/09
[2024-09-14 11:17] VITALS: BP 122/74; PULSE 74; RESP 16; TEMP 36.6; O2SAT 99
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
== END 2024-09-14 11:46 | disposition home or self-care (01) ==
PROVIDERS: Emergency Provider Nurse Practitioner Family; PCP Nurse Practitioner Adult Health
DX: S16.1XXA Strain of muscle, fascia and tendon at neck level, initial encounter (principal); X50.0XXA Overexertion from strenuous movement or load, initial encounter; J45.909 Unspecified asthma, uncomplicated
CPT/HCPCS: 99213; G0463

== ENCOUNTER 2024-10-21 13:33 | Outpatient (CLI) | payer BC, SELFPAY ==
--- NOTE | 2024-10-21 11:30 | NEURO_ITS ---
Impression: # Complains of feet pain. History of Angie Danlos syndrome. ? # Normal Nerve Conduction Study ? # Normal Needle/ EMG exam ? # Clinical correlation recommended. Nerve Conduction Studies ?Stim Site NR Peak (ms) P-T Amp (?V) Site1 Site2 Delta-P (ms) Dist (cm) Nelson (m/s) Left Sup Fibular Anti Sensory (Ant Lat Mall) 14 cm ? 3.1 3.7 14 cm Ant Lat Mall 3.1 16.0 52 Right Sup Fibular Anti Sensory (Ant Lat Mall) 14 cm ? 3.5 5.1 14 cm Ant Lat Mall 3.5 16.0 46 Left Sural Anti Sensory (Lat Mall) Calf ? 4.0 0.5 Calf Lat Mall 4.0 16.0 40 Right Sural Anti Sensory (Lat Mall) Calf ? 3.9 2.6 Calf Lat Mall 3.9 16.0 41 ?Stim Site NR Onset (ms) O-P Amp (mV) Site1 Site2 Delta-0 (ms) Dist (cm) Nelson (m/s) Left Peroneal Motor (Vastus Med) Ankle ? 3.3 1.0 Popit Ankle 9.0 45.0 50 Popit ? 12.3 1.4 Right Peroneal Motor (Vastus Med) Ankle ? 2.7 2.9 Popit Ankle 8.5 43.0 51 Popit ? 11.2 3.1 Left Tibial Motor (Abd Sahu Brev) Ankle ? 4.0 8.9 Knee Ankle 9.7 45.0 46 Knee ? 13.7 5.9 Right Tibial Motor (Abd Sahu Brev) Ankle ? 3.8 7.1 Knee Ankle 9.2 42.0 46 Knee ? 13.0 6.2 Electromyography ?Side Muscle Nerve Root Ins Act Fibs Amp Dur Recrt Comment Right AntTibialis Dp Br Fibular L4-5 Nml Nml Nml Nml Nml Right Gastroc Tibial S1-2 Nml Nml Nml Nml Nml Right Fibularis Long Sup Br Fibular L5-S1 Nml Nml Nml Nml Nml Right Flex Dig Long Tibial L5-S2 Nml Nml Nml Nml Nml Right Ext Dig Brev Dp Br Fibular L5, S1 Nml Nml Nml Nml Nml Right QuadratusFem QuadFemoris L4-5, S1 Nml Nml Nml Nml Nml Left AntTibialis Dp Br Fibular L4-5 Nml Nml Nml Nml Nml Left Gastroc Tibial S1-2 Nml Nml Nml Nml Nml Left Fibularis Long Sup Br Fibular L5-S1 Nml Nml Nml Nml Nml Left Flex Dig Long Tibial L5-S2 Nml Nml Nml Nml Nml Left Ext Dig Brev Dp Br Fibular L5, S1 Nml Nml Nml Nml Nml Left QuadratusFem QuadFemoris L4-5, S1 Nml Nml Nml Nml Nml
--- OUTSIDE RECORDS SUMMARY | 2024-10-21 13:56 | XMS_ITS | Clinical Summary ---
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 Gender Identity Not on file Sexual Orientation [...] Health Maintenance Due Date Last Done Comments HPV VACCINES (1 - 3-dose series) 11/07/2003 HEPATITIS B VACCINES (1 of 3 - 19+ 3-dose series) 11/07/2007 INFLUENZA VACCINE (#1) 2024 , 04/04/2021, 12/25/2017, Additional history exists PAP SMEAR 05/31/2025 05/31/2022, 10/19/2020 CERVICAL CANCER SCREENING 06/01/2027 HPV/Cotest (21-29) 06/01/2027 05/31/2022, 10/19/2020 HPV/Cotest (30-65) 06/01/2027 05/31/2022, 10/19/2020 DTAP/TDAP/TD VACCINES (2 - Tdap) 08/01/2027 08/01/19 18 Procedures Procedure Name Priority Date/Time Associated Diagnosis Comments CERV/VAG CYTO AGE BASED SCREEN PAP Routine 05/31/2022 12:56 PM CDT Screening for cervical cancer from Last 3 Months or Most Recently Relevant to Health Maintenance Results * CERV/VAG CYTO AGE BASED SCREEN PAP (05/31/2022 12:56 PM CDT) COMMENT (PAP): [facility] [place] Comment: This order for age-based cervical cancer and STI screening follows ACOG guidelines(PB 168, 140, [id number]). See individual assays for performing site location. CLINICAL INFORMATION [facility] [place] Comment:None given LAST MENSTRUAL PERIOD [facility] [place] Comment:NONE GIVEN PREV PAP: [facility] [place] Comment:NONE GIVEN PREV BX: [facility] [place] Comment:NONE GIVEN SOURCE [facility] [place] Comment:Endocervix ADEQUACY: [facility] [place] Comment: Satisfactory for evaluation. Endocervical/transformation zone component present. Age and/or menstrual status not provided PAP INTERP [facility] [place] Comment:Negative for intraep ithelial lesion or malignancy. COMMENT (PAP TEST) [facility] [place] Comment: This Pap test has been evaluated with computer assisted technology. DINKEY ENGINE FIRER/FIREMAN: [email or web address] Neal Scott Comment: ABC, CT(ASCP) CT screening location: [place] [address] [address] [address] REVIEW DINKEY ENGINE FIRER/FIREMAN: Paige Scott Comment: LMT, CT(ASCP) CT screening location: [place] [address] [address] [address] [address] NOTE Que st Neal Scott Comment: [...] information. HPV E6/E7 Not Detected Not Detected [employer] Comment: Methodology: Mammographer-Mediated Amplification This assay detects E6/E7 viral messenger RNA (mRNA) from 14 high-risk HPV types (16,18,31,33,35,39,45,51,52,56,58,59,66,68). Cervical sources are required for HPV testing. If a vaginal source from a patient who has had a total hysterectomy with removal of cervix was submitted, please contact the testing laboratory for alternative testing options. For additional information, please refer to http://education.[employer]/faq/DMI389z7 (This link if provided for information/ educational purposes only.) Test Performed at: [facility] [address] [place] [address] Orestes Pollock MD Genital SWAB OF ENDOCERVIX / Unknown 05/31/2022 12:56 PM CDT 06/01/2022 1:49 AM CDT Arvind Rich MD PATHOLOGY/CYTOLOGY ORDERABLES [facility] Result [facility] [phone] [facility] [phone] [place] [address] from Last 3 Months or Most Recently Relevant to Health Maintenance Insurance RX [employer] [place] [address] [address] BLUE ACCESS/TRUE BLUE PPO Advance Directives For more information, please contact: [phone] * Full Code (Latest Code Status on [...] 2:47 PM 06/18/2010 2:32 AM Care Teams Senior Quality Manager Relationship Specialty Start Date End Date Michael Schumacher MD PCP - General Family Practice 06/21/09
--- OUTSIDE RECORDS SUMMARY | 2024-10-21 13:56 | XMS_ITS | Clinical Summary ---
Author Organization [facility] Address [address] [place] [address] Phone Care Team Providers Care Technician Preventative Medicine Name Role Phone Mamie Soria APRN, TOY DESIGNER Primary Care P rovider Allergies Active Allergy [...] Comments Blood Pressure 100/70 04/03/2023 11:38 AM TANKMAN Pulse 83 04/03/2023 11:38 AM TANKMAN Temperature 37.6 C (99.7 F) 04/03/2023 11:38 AM TANKMAN Respiratory Rate 15 04/03/2023 11:38 AM TANKMAN Oxygen Saturation 99% 04/03/2023 11:38 AM TANKMAN Inhaled Oxygen Concentration - - Weight 72.6 kg (160 lb) 11/07/2022 10:39 AM CDT Height 172.7 cm (5' 8) 11/07/2022 10:39 AM CDT Body Mass Index 24.33 11/07/2022 10:39 AM CDT Plan of Treatment Health Maintenance Due Date Last Done Comments Hepatitis C Virus (HCV) Screening 1988 Human Papillomavirus (HPV) Immunization (1 - 3-dose SCDM series) 11/07/2015 HPV/Cotest 2018 Cervical Cancer Screening (CCS) 10/20/2023 Pap Smear 10/20/2023 10/19/2020, 11/14/2017 SARS-COV-2 Immunization ( season) 2023 04/04/2021, 03/23/2020, 03/03/2020 Influenza Immunization (#1) 11/10/202401/10, 04/04/2021, 12/25/2017 Respiratory Syncytial Virus (RSV) Immunization [...] patient's age to complete this topic Insurance [facility] Care Teams Technician Preventative Medicine Relationship Specialty Start Date End Date Mamie Soria APRN, TOY DESIGNER [address] [place] [address] PCP - General Advanced Practice Nurse 12/25/17
== END 2024-10-21 13:34 | disposition home or self-care (01) ==
PROVIDERS: PCP Nurse Practitioner Adult Health; Visit Provider Orthopaedic Surgery
DX: G57.53 Tarsal tunnel syndrome, bilateral lower limbs (principal); Q79.60 Ehlers-Danlos syndrome, unspecified
CPT/HCPCS: 95886; 95910

== ENCOUNTER 2024-12-13 16:28 | Emergency (ER) | payer BC, SELFPAY ==
[2024-12-13 16:30] VITALS: BP 103/67; PULSE 87; RESP 16; TEMP 36.7; O2SAT 99
--- OUTSIDE RECORDS SUMMARY | 2024-12-13 16:30 | XMS_ITS | Clinical Summary ---
Author Organization [address] lto Address [address] [place] [address] [place] [address] Care Team Providers Care Vice President Quality Assurance Name Role Phone Estella Mamie Wan NP Unavailable Colleen Roman NP Primary Care Provider [phone] Allergies No known active allergies Medications fluvoxaMINE (LUVOX) 50 mg tablet Take 1 tablet (50 mg total) by mouth nightly Active Active Problems No known active problems Encounters Date Type Department Care Team Description 12/09/2024 Orders Only [facility] Medicine Pathology Outreach [address] [place] [address] Unknown, Notinfile from Last 3 Months Surgical History Surgery Date Site/Laterality Comments SECTION [...] on file 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 Gender Identity Not on file Sexual Orientation Not on file Obstetrics History Last Filed Vital Signs Vital Sign Reading Time Taken Comments Blood Pressure 114/79 04/18/2024 8:06 AM CABIN SUPERVISOR Pulse 74 04/18/2024 8:06 AM CABIN SUPERVISOR Temperature 36.8 C (98.2 F) 04/18/2024 8:06 AM CABIN SUPERVISOR Respiratory Rate 16 11/27/2020 8:16 AM CDT Oxygen Saturation 99% 11/27/2020 8:16 AM CDT Inhaled Oxygen Concentration - - Weight 78.5 kg (173 lb 1 oz) 04/18/2024 8:06 AM CABIN SUPERVISOR Height 170.2 cm (5' 7) 04/18/2024 8:06 AM CABIN SUPERVISOR Body Mass Index 27.11 04/18/2024 8:06 AM CABIN SUPERVISOR Plan of Treatment Health Maintenance Due Date Last Done Comments Cervical Cancer Screening 1988 Depression Screening 1988 Hepatitis C Screening 1988 Varicella Vaccines (1 of 2 - 13+ 2-dose series) 2001 Hepatitis B Screening 2006 Regular Well Visit/Exam 18-64 2006 Pneumococcal vaccine <65 (1 of 2 - PCV) 11/07/2007 HPV Vaccines (1 - 3-dose SCD M series) 11/07/2015 Covid-19 Vaccine (3 - 2024-2 6 season) 2024 03/23/2020, 03/03/2020 Influenza Vaccine (#1) 2024 2, 04/04/2021, 12/25/2017, Additional history exists DTaP/Tdap/Td Vaccine (2 - Tdap) 08/11/2027 8 Procedures Procedure Name Priority Date/Time Associated Diagnosis Comments SURGICAL PATHOLOGY Routine 12/09/2024 9: 00 AM CDT from Last 3 Months Results * Surgical pathology (12/09/2024 9:00 AM CDT) Skin, shave biopsy 12/09/2024 9:00 AM CDT 12/10/2024 8:03 AM CDT Narrative 12/11/2024 2:03 PM CDT [facility] results best viewed via link to PDF [facility], [address], [place] [address] [email or web address] Note to Patients: This report may contain a detailed description of human tissue sent by a health care provider to the laboratory for pathologic evaluation. The content of this report is essential for diagnosis and may provide important critical findings. This information may be unfamiliar to patients to review without a medical professional present. It is advised that the patient review this report in the presence of a health care provider who can answer questions and explain the details. FINAL REPORT Patient Information: PATIENT NAME: KATIE BECKMAN SEX: F : 1990 (Age: 34) Specimen Information: COLLECTED: 12/09/2024 RECEIVED: 12/10/2024 REPORTED: 12/11/2024 Submitting Physician Information: Courtney Hatfield, [facility], [address] [place] [address], DERMATOPATHOLOGY REPORT RESULTS DIAGNOSIS: A. SKIN, RIGHT DISTAL POSTERIOR UPPER ARM, SHAVE BIOPSY: COMPOUND MELANOCYTIC NEVUS B. SKIN, RIGHT VENTRAL PROXIMAL FOREARM B, SHAVE BIOPSY: COMPOUND MELANOCYTIC NEVUS C. SKIN, RIGHT VENTRAL PROXIMAL FOREARM C, SHAVE BIOPSY: COMPOUND MELANOCYTIC NEVUS D. SKIN, LEFT SUPERIOR LATERAL LOWER BACK, SHAVE BIOPSY: COMPOUND MELANOCYTIC NEVUS /ajrr By this signature, I attest that the above diagnosis is based upon my personal examination of the slides(and/or other material indicated in the diagnosis). Kwame Ellis M.D. Report Electronically Reviewed and Signed Out By Kwame Ellis M.D. 12/11/2024 14:03:05 CLINICAL INFORMATION A-D. NEOPLASM OF UNCERTAIN BEHAVIOR VS DYSPLASTIC NEVUS SPECIMEN DATA MICROSCOPIC DESCRIPTION: A-D. Enlarged monomorphous melanocytes are arranged as solitary units and nests at the dermo-epidermal junction and as uniform nests, cords and strands within the dermis. (D22.9) GROSS DESCRIPTION: A. Received in a formalin-containing bottle is a superficial fragment of pale valadez, finely scaling, and hair-bearing skin measuring 0.7 by 0.6 by 0.1 cm. The surgical margin is inked blue. The specimen bears a centrally located, valadez, scaly area measuring 0.3 by 0.3 cm. The specimen is sectioned into 2 pieces and submitted entirely in a single cassette. Due to shrinkage, measurements may be different than those at the time of procedure. B. Received in a formalin-containing bottle is a superficial fragment of pale valadez, finely scaling, and hair-bearing skin measuring 0.9 by 0.5 by 0.1 cm. The surgical margin is inked blue. The specimen bears a valadez, variegated, scaly area measuring 0.4 by 0.4 cm that may abut the peripheral margin. The specimen is sectioned into 3 pieces and submitted entirely in a single cassette. Due to shrinkage, measurements may be different than those at the time of procedure. C. Received in a formalin-containing bottle is a superficial fragment of pale valadez, finely scaling, and semi-translucent skin measuring 0.6 by 0.5 by 0.1 cm. The surgical margin is inked blue. The specimen bears a valadez, scaly area measuring 0.3 by 0.3 cm that may abut the peripheral margin. The specimen is sectioned into 2 pieces and submitted entirely in a single cassette. Also within the bottle is a superficial fragment of pale valadez, finely scaling, and semi-translucent skin measuring 0.6 by 0.4 by 0.1 cm. The surgical margin is inked blue. The specimen bears a valadez, scaly area measuring 0.3 by 0.2 cm. The specimen is sectioned into 2 pieces and submitted entirely in a single cassette. Due to shrinkage, measurements may be different than those at the time of procedure. D. Received in a formalin-containing bottle is a superficial fragment of pale valadez, finely scaling, and semi-translucent skin measuring 1.1 by 1.0 by 0.1 cm. The surgical margin is inked blue. The specimen bears a brown, variegated, scaly area measuring 0.7 by 0.5 cm. The specimen is sectioned into 4 pieces and submitted entirely in a single cassette. Due to shrinkage, measurements may be different than those at the time of procedure. ag/mxf ICD-9 ZSD.877 ZSD.407 Clerical Data A; 85173 B; 29868 C; 55545 D; 35203 The characteristics of special, immunohistochemical, and immunofluorescence stains and in-situ hybridization tests performed by the [facility] were deemed acceptable in ongoing supervisor vendor quality measures and in compliance with regulations drawn from the Clinical Laboratory Improvement Act qf2382 (CLIA '88). Control reactions for all stains performed were deemed adequate and appropriate by a pathologist prior to evaluation of patient tissue. Some diagnoses were rendered with the assistance of laboratory-developed tests utilizing analyte-specific reagents; the performance characteristic of these tests were determined by [facility] and are not cleared or approved by the US Food an Drug administration. Laboratory developed test may only be performed in a facility that is certified by the [facility] as a high-complexity laboratory under CLIA '88. These tests are used for clinical purposes and are not investigational. us Notinfile Unknown LAB PATHOLOGY ORDERABLES Final Result from Last 3 Months Insurance [employer] ACCESS ANTHEM ACCESS Care Teams Vice President Quality Assurance Relationship Specialty Start Date End Date Colleen Roman NP [address] [place] [address] PCP - General Nurse Practitioner 03/10/24 Mamie Soria NP [address] [place] [address] Emergency Medicine 11/27/20
--- OUTSIDE RECORDS SUMMARY | 2024-12-13 16:30 | XMS_ITS | Clinical Summary ---
Author Organization [facility] Address [address] [facility] [place] [address] Care Team Providers Care Electrophysiology Technician Name Role Phone Pascual Blankenship MD Primary Care Provider Source Comments [facility],non-owned Affiliates and Associated Physician Practices is amultiple site organization consisting of ambulatory clinics and hospital sitesin [place], [place], [place] and [place]. This disclosure is being madepursuant to the Care Everywhere program and may not contain all information available regarding this patient. 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 Gender Identity Not on file Sexual Orientation Not on file Plan of Treatment Health Maintenance Due Date Last Done Comments HIV SCREENING 11/07/2003 HEPATITIS C SCREENING 11/02/2006 DTAP/TDAP/TD VACCINES (1 - Tdap) 11/07/2007 HEPATITIS B VACCINE (1 of 3 - 19+ 3-dose series) 11/07/2007 PAP SMEAR 2009 HPV VACCINE (1 - 3-dose SCDM series) 11/07/2015 DEPRESSION SCREENING 03/12/2024 COVID-19 VACCINE (3 - 2024-2 6 season) 2024 03/23/2020, 03/03/2020 INFLUENZA VACCINE (#1) 2024 8, 12/30/2010 ZOSTER VACCINE (1 of 2) 2038 [...] Date of Phone Billing Address Personal/Family [address] [place] [address] SELF PAY NO INSURANCE Member Subscriber Plan / Payer (Ef fective for All Dates) Name:Katie Beckman Member ID:Not on file Relation to Subscriber:Not on file Name:KATIE BECKMAN Subscriber ID:Not on file Address: [address] [place] [address] Payer ID:Not on file Group ID:Not on file Type:Self Pay Address: [place], [place] * Guarantor: KATIE BECKMAN Account Type Relation to Patient Date of Phone Billing Address Personal/Family [address] [place] [address] SELF PAY NO INSURANCE Member Subscriber Plan / Payer (Ef fective for All Dates) Name:Katie Beckman Member ID:Not on file Relation to Subscriber:Not on file Name:KATIE BECKMAN Subscriber ID:Not on file Address: [address] [place] [address] Payer ID:Not on file Group ID:Not on file Type:Self Pay Address: [place], [place] * Guarantor: KATIE BECKMAN Account Type Relation to Patient Date of Phone Billing Address Personal/Family [address] [place] [address] SELF PAY NO INSURANCE Member Subscriber Plan / Payer (Ef fective for All Dates) Name:Katie Beckman Member ID:Not on file Relation to Subscriber:Not on file Name:KATIE BECKMAN Subscriber ID:Not on file Address: [address] [place] [address] Payer ID:Not on file Group ID:Not on file Type:Self Pay Address: [place], [place] Care Teams Electrophysiology Technician Relationship Specialty Start Date End Date Pascual Blankenship MD [address] [place] [address] PCP - General 02/07/22
--- OUTSIDE RECORDS SUMMARY | 2024-12-13 16:30 | XMS_ITS | Clinical Summary ---
Author Organization [facility] Address [address] [place] [address] Phone Care Team Providers Care Straw Hat Brusher Name Role Phone Mamie Soria APRN, OXYGEN EQUIPMENT TECHNICIAN Primary Care P rovider Allergies Active Allergy [...] Comments Blood Pressure 100/70 04/03/2023 11:38 AM PERSONNEL CLERKS SUPERVISOR Pulse 83 04/03/2023 11:38 AM PERSONNEL CLERKS SUPERVISOR Temperature 37.6 C (99.7 F) 04/03/2023 11:38 AM PERSONNEL CLERKS SUPERVISOR Respiratory Rate 15 04/03/2023 11:38 AM PERSONNEL CLERKS SUPERVISOR Oxygen Saturation 99% 04/03/2023 11:38 AM PERSONNEL CLERKS SUPERVISOR Inhaled Oxygen Concentration - - Weight 72.6 [...] Smear 10/20/2023 10/19/2020, 11/14/2017 Influenza Immunization (#1) 11/10/202401/10, 04/04/2021, 12/25/2017 SARS-COV-2 Immunization ( season) 2024 04/04/2021, 03/23/2020, 03/03/2020 Respiratory Syncytial Virus (RSV) [...] patient's age to complete this topic Insurance [facility] Care Teams Straw Hat Brusher Relationship Specialty Start Date End Date Mamie Soria APRN, OXYGEN EQUIPMENT TECHNICIAN [address] [place] [address] PCP - General Advanced Practice Nurse 12/25/17
--- OUTSIDE RECORDS SUMMARY | 2024-12-13 16:30 | XMS_ITS | Clinical Summary ---
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 See individual assays for performing site location. CLINICAL INFORMATION [facility] Comment:None given LAST MENSTRUAL PERIOD [facility] [place] Comment:NONE GIVEN PREV PAP: [facility] [place] Comment:NONE GIVEN PREV BX: [facility] [place] Comment:NONE GIVEN SOURCE [facility] [place] Comment:Endocervix ADEQUACY: [facility] [place] Comment: Satisfactory for evaluation. Endocervical/transformation zone component present. Age and/or menstrual status not provided PAP INTERP [facility] [place] Comment:Negative for intraep ithelial lesion or malignancy. COMMENT (PAP TEST) [facility] [place] Comment: This Pap test has been evaluated with computer assisted technology. BUDGET DIRECTOR: Adenike EndosenseLazaro Scott Comment: ABC, CT(ASCP) CT screening location: [place] [address] [address] [id number] REVIEW BUDGET DIRECTOR: Paige Scott Comment: LMT, CT(ASCP) CT screening location: [place] [address] [address] [place] [address] EXPLANATORY NOTE [employer] Neal Scott Comment: EXPLANATORY NOTE: The Pap [...] information. HPV E6/E7 Not Detected Not Detected [employer] Comment: Methodology: Senior Product Engineer-Mediated Amplification This assay detects E6/E7 viral messenger RNA (mRNA) from 14 high-risk HPV types (16,18,31,33,35,39,45,51,52,56,58,59,66,68). Cervical sources are required for HPV testing. If a vaginal source from a patient who has had a total hysterectomy with removal of cervix was submitted, please contact the testing laboratory for alternative testing options. For additional information, please refer to http://education.Verbling/faq/GIJ160g0 (This link if provided for information/ educational purposes only.) Test Performed at: [email or web address] [id number] [place] [address] Orestes Pollock MD Genital SWAB OF ENDOCERVIX / Unknown 05/31/2022 12:56 PM CDT 06/01/2022 1:49 AM CDT Arvind Rich MD PATHOLOGY/CYTOLOGY ORDERABLES [facility] Result [facility] [phone] [facility] [address] [place] [address] from Last 3 Months or Most Recently Relevant to Health Maintenance Insurance [employer] [address] [facility] [place] [id number] [facility] BLUE ACCESS/TRUE BLUE PPO Advance Directives For more information, please contact: [phone] * Full Code (Latest Code Status on [...] 2:47 PM 06/18/2010 2:32 AM Care Teams Pile Driving Technician Relationship Specialty Start Date End Date Michael Schumacher MD PCP - General Family Practice 06/21/09
--- NOTE | 2024-12-13 16:46 | ED_ITS ---
HPI - Skin/Abscess/Foreign Bdy General Chief complaint: Skin/Abscess/Foreign Body Stated complaint: rash arm and back Time Seen by Provider: 12/13/24 16:30 Source: patient and RN notes reviewed Mode of arrival: ambulatory Limitations: no limitations History of Present Illness HPI narrative: 34-year-old female presents [facility] complaining rash on her arms and her back for approximately 2 days. Patient reports it is very pruritic. Patient is unsure what caused a rash but states is not getting any better, she said a month ago this occurred to her and her PCP prescribed her Medrol Dosepak and improved. Patient denies any changes to her daily habits, no new fragrance is, detergents, soaps, etc.. Patient denies any nausea, vomiting, shortness of breath, wheezing, swelling to her face, tongue, throat, or lips. Patient has not tried any [id number] help with symptoms. Patient denies any significant past medical history. Related Data Allergies Allergy/AdvReac Type Severity Reaction Status Date / Time No Known Allergies Allergy Verified 12/13/24 16:35 Review of Systems Review of Systems: CONSTITUTIONAL: Denies fever, chills, or sweats. EYES: Denies visual changes, redness, or discharge. ENT: Denies rhinorrhea, congestion, sore throat, or otalgia. CARDIOVASCULAR: Denies chest pain, palpitations, or edema. RESPIRATORY: Denies cough or dyspnea. GASTROINTESTINAL: Denies abdominal pain, nausea, vomiting, or diarrhea. GENITOURINARY: Denies dysuria or hematuria. SKIN: Positive for rash and itching. MUSCULOSKELETAL: Denies back pain, joint pain, or myalgia. NEUROLOGIC: Denies headache, numbness, or weakness. PSYCHIATRIC: Denies anxiety or depression. All other systems reviewed are negative, except as documented in HPI. [facility] Past Medical History Medical History Metatarsalgia of right foot Metatarsalgia of left foot Plantar fasciitis, bilateral 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 Migraine Anxiety Asthma Surgical History Surgical History H/O section History of endometrial ablation 06/2022 Family History Family History Father Diabetes mellitus Heart disease Cancer Mother Depression Disorder of thyroid Grandparent Diabetes mellitus Social History Social History Smoking status: Never smoker Alcohol intake: current Alcohol use details: Socially Substance use type: does not use Lack of Transportation: No Lack of Food: Never True Current Housing: I Have Housing Concerned About Future Housing: No Difficulty Paying Gas/Electric Bills: No Difficulty Paying for Meds: No Currently Unemployed: No Education: Trade/Vocational Certificate Difficulty w/ Childcare or Family Care: No Living arrangements: with family Additional living arrangements comments: with sp Occupation/Education: occupation 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 Gender identity (if verbalized by the patient): Female Agree to blood products: Yes Comments At the time of my signature, I reviewed and agree with the nursing past medical, surgical, social, and family history. There is no relevant family history pertinent to the patient complaint. Exam Narrative: GENERAL: This is a well-nourished, well-developed adult, in no apparent distress. They are non ill-appearing, nontoxic appearing. HEAD: normocephalic, atraumatic. EYES: Sclera clear/white. Conjunctiva normal. Vision is grossly intact. Extraocular movements intact EARS: External ears normal, Hearing grossly intact. NOSE: External nose normal THROAT: Mucous membranes moist, posterior pharynx clear, without erythema or swelling. Uvula midline. NECK: Neck supple, non-tender without lymphadenopathy, masses or thyromegaly. CARDIOVASCULAR: Regular rate and rhythm RESPIRATORY: Respiratory rate normal, respiratory effort nonlabored, no respiratory distress SKIN: Erythematous macular papular rash with wheels present scattered diffusely throughout the patient's bilateral arms and back. It is pruritic, nontender, no area of fluctuance, no induration. NEURO: awake, alert, and oriented to person, place and time. There were no obvious focal neurologic abnormalities. EXTREMITIES: No joint tenderness, effusion, or edema noted. BACK: Nontender without deformity. No CVA tenderness. Course Course Emergency Course: Portions of this record may have been created with voice recognition software Level of Care: Express Care Visit Vital Signs Vital signs: Vital Signs Temperature 98.0 F 12/13/24 16:30 Pulse Rate 87 12/13/24 16:30 Respiratory Rate 16 12/13/24 16:30 Blood Pressure 103/67 12/13/24 16:30 Pulse Oximetry 99 12/13/24 16:30 Oxygen Delivery Room Air 12/13/24 16:30 Temperature 98.0 F 12/13/24 16:30 Pulse Rate 87 12/13/24 16:30 Respiratory Rate 16 12/13/24 16:30 Blood Pressure 103/67 12/13/24 16:30 Pulse Oximetry 99 12/13/24 16:30 Oxygen Delivery Room Air 12/13/24 16:30 Reviewed MDM - Skin/Abscess/Foreign Bdy MDM Narrative Medical decision making narrative: No evidence of anaphylaxis, appears patient has hives. Unsure what caused the hives. Will prescribe a course of prednisone. Discussed the use of antihistamines and anti itch cream to help with symptoms. Advised patient close follow-up with PCP and positive allergy testing to determine cause of hives. Discussed physical exam findings. Advised supportive measures and signs/symptoms to go to the ER. Pt is appropriate for outpt treatment and f/u. Differential Diagnosis Differential diagnosis: Likely abscess of skin or subcutaneous tissue, urticaria, cellulitis and eczema Critical Care Time Critical Care Time Critical Care Time: No Discharge Plan Discharge Clinical Impression: Allergic reaction Qualifiers: Encounter type: initial encounter Qualified Code(s): T78.40XA - Allergy, unspecified, initial encounter Patient Disposition: Home Condition: Stable Instructions: Urticaria (ED) Additional Instructions: Take the prednisone as directed. Take it in the morning and take it with food. You may use calamine lotion, camphor, hydrocortisone cream, Benadryl cream as needed for itchiness symptoms. You may also take Zyrtec or Claritin as needed for allergy or itchiness symptoms. You may use Benadryl as needed for itchiness as well, it may make you drowsy is to not drive or operate machinery while taking Benadryl. Follow-up PCP in 3-5 days. If you develop any worsening redness, swelling, swelling to the face, lips, tongue, throat, wheezing, nausea, vomiting, shortness of breath, Discharge, fevers, breathing problems, or any other concerns please go to the ER immediately. Patient Language: Korean Prescriptions: New prednisone 20 mg tablet 40 mg PO DAILY 5 Days Qty: 10 0RF No Action fluvoxamine 50 mg tablet 50 mg PO DAILY Qty: 90 3RF Follow-up/Referrals: Colleen Roman APRN [Primary Care Provider, [facility]] Time of Disposition: 16:44
== END 2024-12-13 16:50 | disposition home or self-care (01) ==
PROVIDERS: PCP Nurse Practitioner Adult Health
DX: T78.40XA Allergy, unspecified, initial encounter (principal); J45.909 Unspecified asthma, uncomplicated
CPT/HCPCS: 99213; G0463